=== PATIENT | female | born 1945 | race Caucasian/White ===

== ENCOUNTER → 2017-09-11 11:32 | Outpatient (CLI) | payer MEDICARE, OTHER, SELFPAY ==
--- NOTE | 2017-09-11 | DI.MG.S_ITS ---
BILATERAL DIGITAL SCREENING MAMMOGRAM 3D/2D WITH CAD: 09/11/2017 CLINICAL: Routine screening. Comparison is made to exams dated: 07/31/2016 mammogram, 07/23/2014 mammogram, and 07/22/2013 mammogram - [facility]. The tissue of both breasts is heterogeneously dense. This may lower the sensitivity of mammography. Current study was also evaluated with a Computer Aided Detection (CAD) system. No significant masses, calcifications, or other findings are seen in either breast. There has been no significant interval change. IMPRESSION: NEGATIVE There is no mammographic evidence of malignancy. A 1 year screening mammogram is recommended. This exam was interpreted at Station ID: [id number]. NOTE: For mammograms, a report in lay terms will be sent to the patient. Approximately 15% of breast malignancies will not be visualized mammographically. In the management of a palpable breast mass, a negative mammogram must not discourage biopsy of a clinically suspicious lesion. Electronically Signed By: Luke desai/cabrera:09/11/2017 17:18:45 letter sent: Normal Exam ACR BI-RADS Category 1: Negative 3341F
== END ==
PROVIDERS: PCP Internal Medicine; Visit Provider Internal Medicine
DX: Z12.31 Encounter for screening mammogram for malignant neoplasm of breast (principal)
CPT/HCPCS: 77063; 77067

== ENCOUNTER 2018-08-02 14:28 | Emergency (ER) | payer MEDICARE, OTHER, SELFPAY ==
[2018-08-02 14:30] VITALS: BP 198/84; PULSE 72; RESP 17; TEMP 36.7; O2SAT 98
--- NOTE | 2018-08-02 14:41 | DI.RAD.S_ITS ---
PROCEDURE: XR CHEST 1V INDICATIONS: chest pain TECHNIQUE: One view of the chest was acquired. COMPARISON: None. FINDINGS: Surgical changes and devices: None. Lungs and pleura: Lungs are clear. No pleural effusions or pneumothorax. Mediastinum: Mediastinal contours appear normal. Heart size is normal. Bones and chest wall: No suspicious bony lesions. Overlying soft tissues appear unremarkable. IMPRESSION: No acute process. Dictated by: Yosi Licona M.D. on 08/02/2018 at 14:10 Approved by: Yosi Licona M.D. on 08/02/2018 at 14:10
[2018-08-02 14:56] LABS: Add Manual Diff / Slide Review NO; Basophils Absolute Auto 0 /uL (0-100); Basophils Percent Auto 0.4 % (0-2); Eosinophils Absolute Auto 200 /uL (0-450); Eosinophils Percent Auto 2.5 % (2-4); Hematocrit 39.8 % (36-46); Hemoglobin 13.1 g/dL (12.0-16.0); Lymphocytes Absolute Auto 1700 /uL (1100-4500); Lymphocytes Percent Auto 23.1 % (25-40); Mean Corpuscular Hemoglobin 29.6 PG (26-34); Mean Corpuscular Volume 89.9 fL (80-100); Monocytes Absolute Auto 500 /uL (0-900); Monocytes Percent Auto 6.2 % (3-14); Neutrophils Absolute Auto 5100 /uL (1500-7000); Neutrophils Percent Auto 67.8 % (50-75); Platelet Count 183 X10^3/uL (150-400); Red Blood Cell Count 4.43 X10^6/uL (4.0-5.2); Red Cell Distribution Width 13.5 % (11.6-14.8); White Blood Cell Count 7.5 X10^3/uL (4.5-11.0)
[2018-08-02 14:58] LABS: Prothrombin Time 11.8 SECONDS (10.1-12.7)
[2018-08-02 15:01] LABS: PTT Partial Thromboplastin Tim 32 SECONDS (26.4-36.2)
[2018-08-02 15:02] LABS: Alanine Aminotransferase 27 IU/L (9-52); Albumin 4.6 g/dL (3.5-5.0); Albumin Globulin Ratio 1.6 (1.0-2.8); Alkaline Phosphatase 74 U/L (38-126); Aspartate Aminotransferase 30 IU/L (14-36); Bilirubin Total 0.5 mg/dL (0.2-1.3); Blood Urea Nitrogen 20 mg/dL (7-17); Calcium 9.6 mg/dL (8.4-10.2); Carbon Dioxide 28 mmol/L (22-32); Chloride 106 mmol/L (98-107); Creatine Kinase 168 U/L (30-135); Estimated Glomerular Filt Rate 54.3 mL/min (>60); Globulin 2.8 g/dL (1.7-4.1); Glucose 123 mg/dL (80-110); HEMOLYSIS 28 (0-50); Lipase 180 U/L (23-300); Potassium 4.1 mmol/L (3.4-5.1); Sodium 142 mmol/L (137-145); Total Protein 7.4 g/dL (6.3-8.2)
[2018-08-02 15:13] LABS: Troponin I < 0.012 ng/mL (0.01-0.034)
[2018-08-02 15:18] LABS: CKMB % Relative Index 1.3 % (1.5-5.0); Creatine Kinase MB 2.19 ng/mL (<2.37)
--- NOTE | 2018-08-02 15:56 | ED_ITS ---
HPI - Arrhythmia/Palpitations General Chief Complaint: Arrhythmia/Palpitations Stated Complaint: states trouble with blood pressure and pulse Time Seen by Provider: 08/02/18 15:56 Source: patient Mode of arrival: ambulatory Limitations: no limitations History of Present Illness HPI narrative: Patient is a 72-year-old female who presents with heart palpitations. She has having them off and on she actually had a workup with a Holter monitor in 2010. However she has been noticing it more frequently she has had it twice today she says it happens with exertion and resolves with rest. She feels her heart become quite fast and palpating. She does get short of breath during episodes. She has no real pain she does not pass out. MD complaint: rapid heart beat Related Data Home Medications Medication Instructions Recorded Confirmed aspirin 81 mg PO DAILY 08/02/18 08/02/18 lisinopril 10 mg PO BEDTIME 08/02/18 08/02/18 metoprolol tartrate 50 mg PO BID 08/02/18 08/02/18 metronidazole [Metrogel] 1 applic TOPICAL DAILY 08/02/18 08/02/18 rosuvastatin [Crestor] 10 mg PO DAILY 08/02/18 08/02/18 Allergies Allergy/AdvReac Type Severity Reaction Status Date / Time erythromycin base Allergy Intermediate Rash Verified 08/02/18 14:38 Review of Systems Review of Systems GENERAL: Denies chills, fatigue, malaise, fever, sweats, travel HEENT: Denies sinus pain, ear pain, sore throat, difficulty swallowing, neck p ain RESPIRATORY: Denies dyspnea, cough, wheezing, hemoptysis, sputum. CARDIOVASCULAR: See HPI GASTROINTESTINAL: Denies nausea, vomiting, abdominal pain, diarrhea, constipation, melena. : Denies dysuria, frequency, incontinence, hematuria, urinary retention, flank pain. MUSCULOSKELETAL: Denies weakness, joint pain, or bony pain SKIN: No rash, no erythema, no pruritus NEUROLOGIC: Denies weakness, dizziness, headache, numbness, change in speech, confusion PSYCHIATRIC: No concerning psychosocial issues. 12 point review of systems is negative except for those stated above and HPI [facility] Medical History Hypertension (Acute) Social History Smoking Status: Never smoker Social History Smoking Status: Never smoker Exam Initial Vital Signs Initial Vital Signs: Vital Signs Temperature 98.1 F 08/02/18 14:30 Pulse Rate 72 08/02/18 14:30 Respiratory Rate 17 08/02/18 14:30 Blood Pressure 198/84 H 08/02/18 14:30 Pulse Oximetry 98 08/02/18 14:30 GENERAL: Well-appearing, well-nourished and in no acute distress. HEENT: Head atraumatic,EOMI, pupils reactive, face symmetric, neck is supple no JVD CARDIOVASCULAR: Regular rate and rhythm without murmurs, rubs or gallops. RESPIRATORY: Breath sounds equal bilaterally, no wheezes rales or rhonchi. ABDOMEN: Soft, nontender. Normoactive bowel sounds all 4 quadrants. No guarding or rebound. EXTREMITIES: Normal range of motion, no clubbing or edema. Neurovascularly intact NEUROLOGICAL: Alert and oriented x4.Normal gait and speech. Cranial nerves II through XII grossly intact. SKIN: Warm, dry, no laceration, no petechiae, no rashes or lesions. Course Orders Ordered: ED Orders 08/02/18 14:40 Complete Blood Count AUTO DIFF Stat Comprehensive Metabolic Panel Stat Lipase Stat Partial Thromboplastin Time Stat Prothrombin Time INR Stat Troponin & CK Cardiac Panel Stat 08/02/18 14:41 XR chest 1V Stat EKG-12 Lead Stat Vital Signs - 8 hr 08/02/18 14:30 Temperature 98.1 F Pulse Rate 72 Respiratory Rate 17 Blood Pressure 198/84 H Pulse Oximetry 98 MDM - Arrhythmia/Palpitations Lab Data Attestation: I reviewed the patient's lab results. Result diagrams: 08/02/18 14:40 08/02/18 14:40 Lab Results 08/02/18 08/02/18 08/02/18 Range/Units 14:40 14:40 14:40 WBC 7.5 (4.5-11.0) X10^3/uL RBC 4.43 (4.0-5.2) X10^6/uL Hgb 13.1 (12.0-16.0) g/dL Hct 39.8 (36-46) % MCV 89.9 (80-100) fL MCH 29.6 (26-34) PG MCHC 33.0 (30-36) % RDW 13.5 (11.6-14.8) % Plt Count 183 (150-400) X10^3/uL Neut % (Auto) 67.8 (50-75) % Lymph % (Auto) 23.1 L (25-40) % Day % (Auto) 6.2 (3-14) % Eos % (Auto) 2.5 (2-4) % Baso % (Auto) 0.4 (0-2) % Neut # (Auto) 5100 (8073-4532) /uL Lymph # (Auto) 1700 (5593-0648) /uL Day # (Auto) 500 (0-900) /uL Eos # (Auto) 200 (0-450) /uL Baso # (Auto) 0 (0-100) /uL PT 11.8 (10.1-12.7) SECONDS INR 1.0 (0.9-1.3) APTT 32 (26.4-36.2) SECONDS Sodium 142 (137-145) mmol/L Potassium 4.1 (3.4-5.1) mmol/L Chloride 106 (98-107) mmol/L Carbon Dioxide 28 (22-32) mmol/L BUN 20 H (7-17) mg/dL Creatinine 1.00 (0.52-1.04) mg/dL Estimated GFR 54.3 L (>60) mL/min BUN/Creatinine Ratio 20.0 (6-22) Glucose 123 H (80-110) mg/dL Calcium 9.6 (8.4-10.2) mg/dL Total Bilirubin 0.5 (0.2-1.3) mg/dL AST 30 (14-36) IU/L ALT 27 (9-52) IU/L Alkaline Phosphatase 74 (38-126) U/L Total Creatine Kinase 168 H (30-135) U/L CK-MB (CK-2) 2.19 (<2.37) ng/mL CK-MB (CK-2) Rel Index 1.3 L (1.5-5.0) % Troponin I < 0.012 (0.01-0.034) ng/mL Total Protein 7.4 (6.3-8.2) g/dL Albumin 4.6 (3.5-5.0) g/dL Globulin 2.8 (1.7-4.1) g/dL Albumin/Globulin Ratio 1.6 (1.0-2.8) Lipase 180 (23-300) U/L Imaging Data Chest x-ray: Radiologist's impression: PROCEDURE: XR CHEST 1V INDICATIONS: chest pain TECHNIQUE: One view of the chest was acquired. COMPARISON: None. FINDINGS: Surgical changes and devices: None. Lungs and pleura: Lungs are clear. No pleural effusions or pneumothorax. Mediastinum: Mediastinal contours appear normal. Heart size is normal. Bones and chest wall: No suspicious bony lesions. Overlying soft tissues appear unremarkable. IMPRESSION: No acute process. Dictated by: Yosi Licona M.D. on 08/02/2018 at 14:10 ECG Data Attestation: I personally reviewed and interpreted this ECG as follows: Prior ECG tracings: available for review Interpretation: Normal sinus rhythm rate [address] changes no T-wave inversion MDM Narrative Medical decision making narrative: I had the patient stand up and jump up and down at bedside. While she was on the monitor her heart rate remained stable. I strongly recommend that she have a Holter monitor read done. Recommend that she follow up with her PCP. Her blood pressure is noted to be elevated she has not taken her 4:00 p.m. medications. She did take a dose in the emergency department. I recommended that she have her blood pressure candelaria cked as well. Discharge Plan Departure Patient Disposition: Home Clinical Impression: Palpitations Discharge Date/Time: 08/02/18 16:26 Interventions: ED Discharge Assessment Last Done: 08/02/18 16:17 Instructions: DI for Palpitations Activity Restrictions/Additional Instructions: *You have been diagnosed with heart palpitations *What to do: You need a heart monitor your PCP can help set this up. I also recommend you get a home pulse oximeter which can measure your heart rate when you feel like it is going fast. *Continue to take medications as directed Continue your medications as prescribed -be sure you take your blood pressure medication here blood pressure is noted to be elevated in the emergency department *Follow up with your primary care provider in 2-3 days *Return to ER if you should have any new or worsening heart palpitations shortness of breath passing or any new, worsening or concerning symptoms Prescriptions: No Action rosuvastatin [Crestor] 10 mg tablet 10 mg PO DAILY RF: 0 lisinopril 10 mg tablet 10 mg PO BEDTIME RF: 0 metoprolol tartrate 50 mg tablet 50 mg PO BID RF: 0 metronidazole [Metrogel] 1 % gel 1 applic topical DAILY RF: 0 aspirin 81 mg Tablet,Chewable 81 mg PO DAILY RF: 0 Referrals: Hong Rose MD [Primary Care Provider] -
[2018-08-02 16:17] VITALS: BP 186/76; PULSE 64; RESP 20; O2SAT 99
== END 2018-08-02 16:26 | disposition home or self-care (01) ==
PROVIDERS: Emergency Provider Emergency Medicine; PCP Internal Medicine
DX: R00.2 Palpitations (principal)
CPT/HCPCS: 36591; 71045; 80053; 82550; 82553; 83690; 84484; 85025; 85610; 85730; 93005; 99283; 99285

== ENCOUNTER → 2018-10-02 11:11 | Outpatient (CLI) | payer MEDICARE, OTHER, SELFPAY ==
--- NOTE | 2018-10-02 | DI.MG.S_ITS ---
BILATERAL DIGITAL SCREENING MAMMOGRAM 3D/2D WITH CAD: 10/02/2018 CLINICAL: Routine screening. Comparison is made to exams dated: 09/11/2017 mammogram, 07/31/2016 mammogram, 07/23/2014 mammogram, and 06/25/2012 mammogram - [facility]. The tissue of both breasts is heterogeneously dense. This may lower the sensitivity of mammography. Current study was also evaluated with a Computer Aided Detection (CAD) system. No significant masses, calcifications, or other findings are seen in either breast. There has been no significant interval change. IMPRESSION: NEGATIVE There is no mammographic evidence of malignancy. A 1 year screening mammogram is recommended. This exam was interpreted at Station ID: [id number]. NOTE: For mammograms, a report in lay terms will be sent to the patient. Approximately 15% of breast malignancies will not be visualized mammographically. In the management of a palpable breast mass, a negative mammogram must not discourage biopsy of a clinically suspicious lesion. Electronically Signed By: Trevor guzman/cabrera:10/02/2018 12:10:07 letter sent: Normal Exam ACR BI-RADS Category 1: Negative 3341F
== END ==
PROVIDERS: PCP Internal Medicine; Visit Provider Internal Medicine
DX: Z12.31 Encounter for screening mammogram for malignant neoplasm of breast (principal)
CPT/HCPCS: 77063; 77067

== ENCOUNTER → 2019-10-04 11:27 | Outpatient (CLI) | payer MEDICARE, OTHER, SELFPAY ==
--- NOTE | 2019-10-04 11:30 | DI.MG.S_ITS ---
BILATERAL DIGITAL SCREENING MAMMOGRAM 3D/2D WITH CAD: 10/04/2019 CLINICAL: Routine screening. Comparison is made to exams dated: 10/02/2018 mammogram, 09/11/2017 mammogram, and 07/31/2016 mammogram - [facility]. The tissue of both breasts is heterogeneously dense. This may lower the sensitivity of mammography. Current study was also evaluated with a Computer Aided Detection (CAD) system. No significant masses, calcifications, or other findings are seen in either breast. There has been no significant interval change. IMPRESSION: NEGATIVE There is no mammographic evidence of malignancy. A 1 year screening mammogram is recommended. This exam was interpreted at Station ID: [id number]. NOTE: For mammograms, a report in lay terms will be sent to the patient. Approximately 15% of breast malignancies will not be visualized mammographically. In the management of a palpable breast mass, a negative mammogram must not discourage biopsy of a clinically suspicious lesion. Electronically Signed By: Sherwin tidwell/cabrera:10/06/2019 07:45:45 letter sent: Normal Exam ACR BI-RADS Category 1: Negative 3341F
== END ==
PROVIDERS: PCP Internal Medicine; Referring Provider Internal Medicine; Visit Provider Internal Medicine
DX: Z12.31 Encounter for screening mammogram for malignant neoplasm of breast (principal)
CPT/HCPCS: 77063; 77067

== ENCOUNTER → 2020-03-29 13:00 | Outpatient (CLI) | payer MEDICARE, OTHER, SELFPAY ==
[2020-03-29 13:34] LABS: Hematocrit 38.7 % (36-46); Hemoglobin 12.9 g/dL (12.0-16.0); Mean Corpuscular HGB Conc 33.4 % (30-36); Mean Corpuscular Hemoglobin 29.6 PG (26-34); Mean Corpuscular Volume 88.7 fL (80-100); Platelet Count 185 X10^3/uL (150-400); Red Blood Cell Count 4.36 X10^6/uL (4.0-5.2); Red Cell Distribution Width 13.5 % (11.6-14.8)
[2020-03-29 13:52] LABS: Alanine Aminotransferase 20 IU/L (<35); Albumin 4.6 g/dL (3.5-5.0); Albumin Globulin Ratio 1.4 (1.0-2.8); Alkaline Phosphatase 84 U/L (38-126); Aspartate Aminotransferase 26 IU/L (14-36); BUN Creatinine Ratio 25.3 (6-22); Bilirubin Total 0.3 mg/dL (0.2-1.3); Blood Urea Nitrogen 23 mg/dL (7-17); Calcium 9.8 mg/dL (8.4-10.2); Carbon Dioxide 30 mmol/L (22-32); Chloride 103 mmol/L (98-107); Cholesterol 160 mg/dL (140-199); Estimated Glomerular Filt Rate > 60.0 mL/min (>60); Globulin 3.2 g/dL (1.7-4.1); Glucose 110 mg/dL (80-110); HDL Cholesterol 68 mg/dL (40-60); HEMOLYSIS < 15 (0-50); LDL Cholesterol Calculated 71 mg/dL (<100); Sodium 138 mmol/L (137-145); Total Protein 7.8 g/dL (6.3-8.2); Triglycerides 104 mg/dL (35-150)
[2020-03-29 14:51] LABS: TSH w/ Reflex to FT4 1.63 uIU/mL (0.47-4.68)
== END ==
PROVIDERS: PCP Registered Nurse Diabetes Educator; Referring Provider Registered Nurse Diabetes Educator; Visit Provider Registered Nurse Diabetes Educator
DX: E78.5 Hyperlipidemia, unspecified (principal); I10 Essential (primary) hypertension
CPT/HCPCS: 36415; 80053; 80061; 84443; 85027

== ENCOUNTER → 2020-04-03 09:54 | Outpatient (CLI) | payer MEDICARE, OTHER, SELFPAY ==
[2020-04-03 11:24] LABS: COVID19 -Nasal RAPID Negative (Negative)
== END ==
PROVIDERS: PCP Registered Nurse Diabetes Educator; Visit Provider Physician Assistant
DX: Z20.822 Contact with and (suspected) exposure to COVID-19 (principal)
CPT/HCPCS: 87635; C9803

== ENCOUNTER → 2020-04-05 13:24 | Outpatient (CLI) | payer MEDICARE, OTHER, SELFPAY | PROVIDERS: PCP Registered Nurse Diabetes Educator; Referring Provider Registered Nurse Diabetes Educator; Visit Provider Registered Nurse Diabetes Educator | DX: R07.89 Other chest pain (principal) ==

== ENCOUNTER → 2020-04-21 09:57 | Outpatient (CLI) | payer MEDICARE, OTHER, SELFPAY ==
[2020-04-21 11:37] LABS: COVID19 -Nasal RAPID Negative (Negative)
== END ==
PROVIDERS: PCP Registered Nurse Diabetes Educator; Visit Provider Physician Assistant
DX: Z20.822 Contact with and (suspected) exposure to COVID-19 (principal); Z01.812 Encounter for preprocedural laboratory examination
CPT/HCPCS: 87635; C9803

== ENCOUNTER → 2020-04-22 13:05 | Outpatient (CLI) | payer MEDICARE, OTHER, SELFPAY ==
--- NOTE | 2020-04-22 14:14 | PM.TREADMILL ---
Cardiac Stress Test Report Referral & Results Date Patient Seen: 04/22/20 Requesting provider: Fede Caraballo Indication: Chest discomfort Rest ECG: Unremarkable except for frequent PACs Procedure Note: Today following both written and verbal informed consent the patient was exercised according to a standard Matias protocol patient went for a total of 3 minutes 35 seconds achieving a maximum heart rate of 146 maximum systolic blood pressure of 218. This is approximately 4.6 METS. Exercise was terminated at this point because of 2+ dyspnea and patient had met targets Patient was also given Cardiolite through a previously started Hep-Lock IV by the diagnostic imaging staff approximately 1 minute prior to the cessation of exercise. Patient was somewhat hypertensive to start but ultimately did peak at a slightly hypertensive level. Blood pressure did not rise all that quickly. Heart rate leonie very quickly with initiation of exercise despite her metoprolol which she did take prior to this test No ST-T segment changes Function aerobic impairment rates 10% sedentary scale Impression: Basically average exercise capacity, no evidence of ischemia Patient not fully beta-blocked based on her quick heart rate response and overall blood pressure response to exercise, FYI. Please note: Actual ECG tracings can be found in the PACS system.
--- NOTE | 2020-04-23 17:58 | DI.NM.S_ITS ---
DATE OF SERVICE: 04/23/2020 PROCEDURE PERFORMED: Exercise treadmill stress and rest myocardial perfusion imaging with gating to assess ejection fraction and regional wall motion. ORDERING PROVIDER: AUBRIE Paris. INDICATIONS: The patient is a 74-year-old female with a history of SVT and an aborted standard exercise treadmill because of severe hypertension. EXERCISE TREADMILL TESTING: The patient was able to exercise for 3 minutes and 35 seconds on a standard Matias protocol suggesting moderately impaired exercise capacity with an FARZANA of +25%. She had an accelerated heart rate and blood pressure response to exercise with a resting heart rate of 68 BPM that increased to a maximum of 146 BPM (101% of her predicted maximum). Her resting blood pressure was 178/100 and increased to a maximum of 218/80. She had no chest discomfort. Her resting ECG shows mild nonspecific inferolateral ST and T-wave abnormalities that remain unchanged with exercise. She had occasional PACs but no ventricular ectopy. At 2 minutes and 34 seconds of exercise at a heart rate of 135 BPM, 25.9 millicuries of technetium-99m Myoview was injected and the patient was imaged 15 minutes later using a gated SPECT acquisition protocol. The following day she returned and was injected with 25.5 millicuries of technetium-99m Myoview and was imaged 40 minutes later, again using a gated SPECT acquisition protocol. FINDINGS: 1. Raw data: There is fair myocardial tracer uptake with moderate breast shadows noted. Lung/heart ratio was normal at 0.33 with a normal TID ratio of 0.94. 2. Quantitated gated SPECT: Post-stress ejection fraction is estimated at 81% without any focal wall motion abnormality and specifically the anterior wall has normal contractility. The resting ejection fraction is 74% with a resting end- diastolic volume of 72 mL. 3. Myocardial perfusion imaging: The post-stress supine images show a fairly normal perfusion pattern although with a slight defect in the mid anterior wall in a pattern consistent with breast attenuation artifact. There is also a slight lateral wall hot spot that can often be seen in hypertensive heart disease. There are no profound perfusion defects. The prone images show a very similar perfusion pattern with improvement although with a slight residual defect in the mid anterior wall. The resting images show a similar perfusion pattern to that of the post-stress supine images without any clear areas of improvement. IMPRESSION: 1. Probable normal myocardial perfusion study. 2. Small, subtle, fixed anterior defect that improves, but does not resolve on prone imaging, most consistent with breast attenuation artifact. While previous nontransmural infarction cannot be entirely excluded, it is unlikely given the absence of any wall motion abnormality. There is no evidence for any myocardial ischemia. A lateral wall hot spot is seen which can be seen in patients with hypertensive heart disease. 3. Normal left ventricular systolic function without any focal wall motion abnormality. 4. Moderately impaired exercise capacity without angina, but a significant hypertensive blood pressure response to exercise. There is no significant ECG evidence for myocardial ischemia. Carmen Campbell - /tuan/sb doc#: [id number]/job#: [id number] dd: 04/23/2020 17:11:00 dt: 04/23/2020 17:48:00 DICTATING /COPIES TO: Boston Coppola MD COPIES MNE: STEVEN;
== END ==
PROVIDERS: PCP Registered Nurse Diabetes Educator; Referring Provider Registered Nurse Diabetes Educator; Visit Provider Registered Nurse Diabetes Educator
DX: R07.89 Other chest pain (principal); I47.1 Supraventricular tachycardia
CPT/HCPCS: 78452; 93016; 93017; 93018; A9502

== ENCOUNTER → 2020-10-23 08:43 | Outpatient (CLI) | payer MEDICARE, OTHER, SELFPAY ==
--- NOTE | 2020-10-23 08:44 | DI.MG.S_ITS ---
BILATERAL DIGITAL SCREENING MAMMOGRAM 3D/2D WITH CAD: 10/23/2020 CLINICAL: Routine screening. Comparison is made to exams dated: 10/04/2019 mammogram, 10/02/2018 mammogram, and 09/11/2017 mammogram - [facility]. The tissue of both breasts is heterogeneously dense. This may lower the sensitivity of mammography. Current study was also evaluated with a Computer Aided Detection (CAD) system. No significant masses, calcifications, or other findings are seen in either breast. There has been no significant interval change. IMPRESSION: NEGATIVE There is no mammographic evidence of malignancy. A 1 year screening mammogram is recommended. This exam was interpreted at Station ID: [id number]. NOTE: For mammograms, a report in lay terms will be sent to the patient. Approximately 15% of breast malignancies will not be visualized mammographically. In the management of a palpable breast mass, a negative mammogram must not discourage biopsy of a clinically suspicious lesion. Electronically Signed By: Sherwin tidwell/cabrera:10/25/2020 07:31:42 letter sent: Normal Exam ACR BI-RADS Category 1: Negative 3341F
== END ==
PROVIDERS: PCP Registered Nurse Diabetes Educator; Referring Provider Registered Nurse Diabetes Educator; Visit Provider Registered Nurse Diabetes Educator
DX: Z12.31 Encounter for screening mammogram for malignant neoplasm of breast (principal)
CPT/HCPCS: 77063; 77067

== ENCOUNTER → 2020-11-15 09:31 | Outpatient (CLI) | payer MEDICARE, OTHER, SELFPAY ==
[2020-11-15 12:17] LABS: BUN Creatinine Ratio 24.7 (6-22); Blood Urea Nitrogen 20 mg/dL (7-17); Calcium 9.6 mg/dL (8.4-10.2); Carbon Dioxide 28 mmol/L (22-32); Chloride 103 mmol/L (98-107); Estimated Glomerular Filt Rate > 60.0 mL/min (>60); Glucose 97 mg/dL (80-110); HEMOLYSIS < 15 (0-50); Potassium 4.1 mmol/L (3.4-5.1); Sodium 138 mmol/L (137-145)
== END ==
PROVIDERS: PCP Registered Nurse Diabetes Educator; Referring Provider Internal Medicine Cardiovascular Disease; Visit Provider Internal Medicine Cardiovascular Disease
DX: I10 Essential (primary) hypertension (principal)
CPT/HCPCS: 36415; 80048

== ENCOUNTER → 2021-01-14 09:39 | Outpatient (CLI) | payer MEDICARE, OTHER, SELFPAY ==
[2021-01-14 10:26] LABS: Hematocrit 38.6 % (36-46); Hemoglobin 13.1 g/dL (12.0-16.0); Mean Corpuscular Hemoglobin 30.2 PG (26-34); Mean Corpuscular Volume 88.7 fL (80-100); Platelet Count 185 X10^3/uL (150-400); Red Blood Cell Count 4.35 X10^6/uL (4.0-5.2); Red Cell Distribution Width 13.3 % (11.6-14.8); White Blood Cell Count 5.5 X10^3/uL (4.5-11.0)
[2021-01-14 10:35] LABS: Hemoglobin A1C% w Est Avg Glu 5.3 % (4.0-6.0)
[2021-01-14 10:42] LABS: Alanine Aminotransferase 17 IU/L (<35); Albumin 4.2 g/dL (3.5-5.0); Albumin Globulin Ratio 1.6 (1.0-2.8); Alkaline Phosphatase 99 U/L (38-126); Aspartate Aminotransferase 22 IU/L (14-36); Bilirubin Total 0.4 mg/dL (0.2-1.3); Blood Urea Nitrogen 16 mg/dL (7-17); Calcium 9.6 mg/dL (8.4-10.2); Carbon Dioxide 31 mmol/L (22-32); Chloride 103 mmol/L (98-107); Cholesterol 143 mg/dL (140-199); Estimated Glomerular Filt Rate 57.9 mL/min (>60); Globulin 2.7 g/dL (1.7-4.1); Glucose 120 mg/dL (80-110); HDL Cholesterol 72 mg/dL (40-60); HEMOLYSIS < 15 (0-50); LDL Cholesterol Calculated 57 mg/dL (<100); Potassium 4.2 mmol/L (3.4-5.1); Sodium 139 mmol/L (137-145); Total Protein 6.9 g/dL (6.3-8.2); Triglycerides 68 mg/dL (35-150)
[2021-01-14 11:08] LABS: TSH w/ Reflex to FT4 1.15 uIU/mL (0.47-4.68)
== END ==
PROVIDERS: PCP Registered Nurse Diabetes Educator; Referring Provider Internal Medicine Cardiovascular Disease; Visit Provider Internal Medicine Cardiovascular Disease
DX: E78.5 Hyperlipidemia, unspecified (principal); R73.01 Impaired fasting glucose; I10 Essential (primary) hypertension
CPT/HCPCS: 36415; 80053; 80061; 83036; 84443; 85027

== ENCOUNTER → 2021-03-29 08:36 | Outpatient (CLI) | payer MEDICARE, OTHER, SELFPAY ==
[2021-03-29 10:13] LABS: BUN Creatinine Ratio 16.5 (6-22); Blood Urea Nitrogen 15 mg/dL (7-17); Calcium 9.8 mg/dL (8.4-10.2); Carbon Dioxide 28 mmol/L (22-32); Chloride 104 mmol/L (98-107); Estimated Glomerular Filt Rate > 60.0 mL/min (>60); Glucose 101 mg/dL (80-110); HEMOLYSIS < 15 (0-50); Potassium 4.2 mmol/L (3.4-5.1); Sodium 140 mmol/L (137-145)
== END ==
PROVIDERS: PCP Registered Nurse Diabetes Educator; Referring Provider Registered Nurse Diabetes Educator; Visit Provider Registered Nurse Diabetes Educator
DX: R94.4 Abnormal results of kidney function studies (principal)
CPT/HCPCS: 36415; 80048

== ENCOUNTER → 2021-04-05 10:02 | Outpatient (CLI) | payer MEDICARE, OTHER, SELFPAY ==
[2021-04-05 11:40] LABS: HEMOLYSIS < 15 (0-50); Iron 72 ug/dL (37-170)
[2021-04-05 11:50] LABS: Percent Iron Saturation 25 % (15-50); Total Iron Binding Capacity 285 ug/dL (265-497); Transferrin 235 mg/dL (206-381)
[2021-04-05 12:15] LABS: Ferritin 81 ng/mL (11-264)
== END ==
PROVIDERS: PCP Registered Nurse Diabetes Educator; Referring Provider Registered Nurse Diabetes Educator; Visit Provider Registered Nurse Diabetes Educator
DX: G25.81 Restless legs syndrome (principal)
CPT/HCPCS: 36415; 82728; 83540; 83550

== ENCOUNTER → 2021-10-29 08:25 | Outpatient (CLI) | payer MEDICARE, OTHER, SELFPAY ==
--- NOTE | 2021-10-29 08:27 | DI.MG.S_ITS ---
BILATERAL DIGITAL SCREENING MAMMOGRAM 3D/2D WITH CAD: 10/29/2021 CLINICAL: Routine screening. Family history of breast cancer. Comparison is made to exams dated: 10/23/2020 mammogram, 10/04/2019 mammogram, 09/11/2017 mammogram, and 10/02/2018 mammogram - [facility]. Both breasts are heterogeneously dense, which may obscure small masses (category c / 51-75% glandular tissue). Current study was also evaluated with a Computer Aided Detection (CAD) system. No significant masses, calcifications, or other findings are seen in either breast. There has been no significant interval change. IMPRESSION: NEGATIVE There is no mammographic evidence of malignancy. A 1 year screening mammogram is recommended. Based on the Tyrer Cuzick model (a risk assessment model) the patient's lifetime risk is 3.7% and her 10 year risk is 0.0%. According to the ACR, ACS, and NCCN guidelines, an annual breast MRI exam along with mammogram is recommended if the patient's lifetime risk is 20% or greater. This exam was interpreted at Station ID: [id number]. NOTE: For mammograms, a report in lay terms will be sent to the patient. Approximately 15% of breast malignancies will not be visualized mammographically. In the management of a palpable breast mass, a negative mammogram must not discourage biopsy of a clinically suspicious lesion. Electronically Signed By: Sherwin tidwell/cabrera:10/31/2021 07:58:49 letter sent: Normal Exam ACR BI-RADS Category 1: Negative 3341F
== END ==
PROVIDERS: PCP Registered Nurse Diabetes Educator; Referring Provider Registered Nurse Diabetes Educator; Visit Provider Registered Nurse Diabetes Educator
DX: Z12.31 Encounter for screening mammogram for malignant neoplasm of breast (principal); Z80.3 Family history of malignant neoplasm of breast
CPT/HCPCS: 77063; 77067

== ENCOUNTER → 2022-03-21 09:06 | Outpatient (CLI) | payer MEDICARE, OTHER, SELFPAY ==
[2022-03-21 10:56] LABS: Hematocrit 40.3 % (36-46); Hemoglobin 13.2 g/dL (12.0-16.0); Mean Corpuscular HGB Conc 32.8 % (30-36); Mean Corpuscular Hemoglobin 29.2 PG (26-34); Platelet Count 182 X10^3/uL (150-400); Red Blood Cell Count 4.53 X10^6/uL (4.0-5.2); Red Cell Distribution Width 13.6 % (11.6-14.8); White Blood Cell Count 5.8 X10^3/uL (4.5-11.0)
[2022-03-21 11:08] LABS: Alanine Aminotransferase 19 IU/L (<35); Albumin 4.1 g/dL (3.5-5.0); Albumin Globulin Ratio 1.5 (1.0-2.8); Alkaline Phosphatase 106 U/L (38-126); Aspartate Aminotransferase 21 IU/L (14-36); BUN Creatinine Ratio 19.1 (6-22); Bilirubin Total 0.5 mg/dL (0.2-1.3); Blood Urea Nitrogen 17 mg/dL (7-17); Calcium 9.7 mg/dL (8.4-10.2); Carbon Dioxide 28 mmol/L (22-32); Chloride 103 mmol/L (98-107); Cholesterol 163 mg/dL (140-199); Estimated Glomerular Filt Rate > 60 mL/min (>60); Globulin 2.7 g/dL (1.7-4.1); Glucose 99 mg/dL (80-110); HDL Cholesterol 77 mg/dL (40-60); HEMOLYSIS < 15 (0-50); LDL Cholesterol Calculated 70 mg/dL (<100); Potassium 4.1 mmol/L (3.4-5.1); Sodium 138 mmol/L (137-145); Total Protein 6.8 g/dL (6.3-8.2); Triglycerides 78 mg/dL (35-150)
== END ==
PROVIDERS: PCP Registered Nurse Diabetes Educator; Referring Provider Registered Nurse Diabetes Educator; Visit Provider Registered Nurse Diabetes Educator
DX: E78.5 Hyperlipidemia, unspecified (principal); I10 Essential (primary) hypertension; R73.01 Impaired fasting glucose
CPT/HCPCS: 36415; 80053; 80061; 85027

== ENCOUNTER → 2022-08-16 14:40 | Outpatient (CLI) | payer MEDICARE, OTHER, SELFPAY ==
[2022-08-16 17:41] LABS: BUN Creatinine Ratio 14.3 (6-22); Blood Urea Nitrogen 17 mg/dL (7-17); Calcium 8.8 mg/dL (8.4-10.2); Carbon Dioxide 29 mmol/L (22-32); Chloride 101 mmol/L (98-107); Estimated Glomerular Filt Rate 47 mL/min (>60); Glucose 114 mg/dL (80-110); HEMOLYSIS < 15 (0-50); Potassium 3.9 mmol/L (3.4-5.1); Sodium 137 mmol/L (137-145)
== END ==
PROVIDERS: PCP Registered Nurse Diabetes Educator; Referring Provider Registered Nurse Diabetes Educator; Visit Provider Registered Nurse Diabetes Educator
DX: I10 Essential (primary) hypertension (principal); Z51.81 Encounter for therapeutic drug level monitoring
CPT/HCPCS: 36415; 80048

== ENCOUNTER → 2022-09-08 12:19 | Outpatient (CLI) | payer MEDICARE, OTHER, SELFPAY ==
[2022-09-08 13:17] LABS: BUN Creatinine Ratio 19.4 (6-22); Blood Urea Nitrogen 18 mg/dL (7-17); Calcium 9.2 mg/dL (8.4-10.2); Carbon Dioxide 28 mmol/L (22-32); Chloride 103 mmol/L (98-107); Estimated Glomerular Filt Rate > 60 mL/min (>60); Glucose 132 mg/dL (80-110); HEMOLYSIS < 15 (0-50); Sodium 137 mmol/L (137-145)
== END ==
PROVIDERS: PCP Registered Nurse Diabetes Educator; Referring Provider Registered Nurse Diabetes Educator; Visit Provider Registered Nurse Diabetes Educator
DX: I10 Essential (primary) hypertension (principal); R94.4 Abnormal results of kidney function studies
CPT/HCPCS: 36415; 80048

== ENCOUNTER → 2023-03-21 06:53 | Outpatient (CLI) | payer MEDICARE, OTHER, SELFPAY ==
[2023-03-21 08:23] LABS: Hematocrit 40.2 % (36-46); Hemoglobin 13.6 g/dL (12.0-16.0); Mean Corpuscular HGB Conc 33.9 % (30-36); Mean Corpuscular Hemoglobin 30.3 PG (26-34); Mean Corpuscular Volume 89.5 fL (80-100); Platelet Count 201 X10^3/uL (150-400); Red Cell Distribution Width 13.1 % (11.6-14.8); White Blood Cell Count 5.6 X10^3/uL (4.5-11.0)
[2023-03-21 08:50] LABS: Alanine Aminotransferase 16 IU/L (<35); Albumin 4.3 g/dL (3.5-5.0); Albumin Globulin Ratio 1.6 (1.0-2.8); Alkaline Phosphatase 94 U/L (38-126); Aspartate Aminotransferase 20 IU/L (14-36); BUN Creatinine Ratio 17.4 (6-22); Bilirubin Total 0.5 mg/dL (0.2-1.3); Blood Urea Nitrogen 16 mg/dL (7-17); Carbon Dioxide 26 mmol/L (22-32); Chloride 104 mmol/L (98-107); Cholesterol 147 mg/dL (140-199); Estimated Glomerular Filt Rate > 60 mL/min (>60); Globulin 2.7 g/dL (1.7-4.1); Glucose 110 mg/dL (80-110); HDL Cholesterol 76 mg/dL (40-60); HEMOLYSIS < 15 (0-50); LDL Cholesterol Calculated 58 mg/dL (<100); Potassium 3.9 mmol/L (3.4-5.1); Sodium 138 mmol/L (137-145); Triglycerides 66 mg/dL (35-150)
== END ==
PROVIDERS: PCP Registered Nurse Diabetes Educator; Referring Provider Registered Nurse Diabetes Educator; Visit Provider Registered Nurse Diabetes Educator
DX: I10 Essential (primary) hypertension (principal); E78.5 Hyperlipidemia, unspecified; R73.01 Impaired fasting glucose
CPT/HCPCS: 36415; 80053; 80061; 85027

== ENCOUNTER → 2024-03-06 09:11 | Outpatient (CLI) | payer MEDICARE, OTHER, SELFPAY ==
[2024-03-06 10:14] LABS: Hematocrit 40.4 % (36-46); Hemoglobin 13.4 g/dL (12.0-16.0); Mean Corpuscular HGB Conc 33.2 % (30-36); Mean Corpuscular Hemoglobin 29.6 PG (26-34); Mean Corpuscular Volume 89.2 fL (80-100); Platelet Count 197 X10^3/uL (150-400); Red Blood Cell Count 4.53 X10^6/uL (4.0-5.2); Red Cell Distribution Width 14.1 % (11.6-14.8); White Blood Cell Count 5.9 X10^3/uL (4.5-11.0)
[2024-03-06 10:28] LABS: Hemoglobin A1C% w Est Avg Glu 5.4 % (4.0-6.0)
[2024-03-06 10:48] LABS: Alanine Aminotransferase 18 IU/L (<35); Albumin 4.4 g/dL (3.5-5.0); Albumin Globulin Ratio 1.8 (1.0-2.8); Alkaline Phosphatase 100 U/L (38-126); Aspartate Aminotransferase 22 IU/L (14-36); BUN Creatinine Ratio 19.2 (6-22); Bilirubin Total 0.4 mg/dL (0.2-1.3); Blood Urea Nitrogen 19 mg/dL (7-17); Calcium 9.7 mg/dL (8.4-10.2); Carbon Dioxide 25 mmol/L (22-32); Chloride 105 mmol/L (98-107); Cholesterol 137 mg/dL (140-199); Estimated Glomerular Filt Rate 58 mL/min (>60); Globulin 2.4 g/dL (1.7-4.1); Glucose 109 mg/dL (80-110); HDL Cholesterol 66 mg/dL (40-60); HEMOLYSIS < 15 (0-50); LDL Cholesterol Calculated 59 mg/dL (<100); Potassium 4.2 mmol/L (3.4-5.1); Sodium 137 mmol/L (137-145); Total Protein 6.8 g/dL (6.3-8.2); Triglycerides 61 mg/dL (35-150)
== END ==
PROVIDERS: PCP Registered Nurse Diabetes Educator; Referring Provider Registered Nurse Diabetes Educator; Visit Provider Registered Nurse Diabetes Educator
DX: R73.01 Impaired fasting glucose (principal); I10 Essential (primary) hypertension; E78.5 Hyperlipidemia, unspecified
CPT/HCPCS: 36415; 80053; 80061; 83036; 85027

== ENCOUNTER → 2024-12-04 09:15 | Outpatient (CLI) | payer MEDICARE, OTHER, SELFPAY ==
--- NOTE | 2024-12-04 09:17 | DI.RAD.S_ITS ---
PROCEDURE: XR LUMBAR SPINE MIN 4V INDICATIONS: eval LBP/buttock pain TECHNIQUE: 5 views of the lumbar spine acquired, including flexion and extension views. COMPARISON: None. FINDINGS: Lumbar spine curvature and alignment: Moderate dextroscoliosis lower thoracic and lumbar spine mine appreciated Bones: Mild chronic wedge compression fractures T8 through L2. Disc spaces: Moderate degenerative disc disease T10-11 through L4-5 and mild L5-S1 degenerative disc disease. Moderate L3-4 through L5-S1 degenerative facet disease . Moderate L3-4 through L5-S1 degenerative facet disease Soft tissues: No soft tissue swelling, calcification or mass. IMPRESSION: Degeneration. Minimal chronic wedge compression fractures T8 through L2. Suspect chronic osteoporosis Dictated by: Neptali Venegas M.D. on 12/05/2024 at 11:34 Approved by: Neptali Venegas M.D. on 12/05/2024 at 11:36
== END ==
PROVIDERS: PCP Registered Nurse Diabetes Educator; Referring Provider Registered Nurse Diabetes Educator; Visit Provider Registered Nurse Diabetes Educator
DX: M51.34 Other intervertebral disc degeneration, thoracic region (principal); M51.360 Other intervertebral disc degeneration, lumbar region with discogenic back pain only; M51.370 Other intervertebral disc degeneration, lumbosacral region with discogenic back pain only; M47.816 Spondylosis without myelopathy or radiculopathy, lumbar region; M47.817 Spondylosis without myelopathy or radiculopathy, lumbosacral region; M79.18 Myalgia, other site
CPT/HCPCS: 72110

== ENCOUNTER → 2024-12-18 11:44 | Outpatient (CLI) | payer MEDICARE, OTHER, SELFPAY ==
--- NOTE | 2024-12-18 11:45 | DI.RAD.S_ITS ---
PROCEDURE: XR DEXA AXIAL SKELETON
== END ==
LOC: RAD 11:44
PROVIDERS: PCP Registered Nurse Diabetes Educator; Referring Provider Registered Nurse Diabetes Educator; Visit Provider Registered Nurse Diabetes Educator
DX: S22.000A Wedge compression fracture of unspecified thoracic vertebra, initial encounter for closed fracture (principal); M81.0 Age-related osteoporosis without current pathological fracture
CPT/HCPCS: 77080

== ENCOUNTER → 2024-12-30 09:54 | Outpatient (CLI) | payer MEDICARE, OTHER, SELFPAY ==
[2024-12-30 10:42] LABS: Hematocrit 41.3 % (36-46); Hemoglobin 13.7 g/dL (12.0-16.0); Mean Corpuscular HGB Conc 33.1 % (30-36); Mean Corpuscular Hemoglobin 29.6 PG (26-34); Mean Corpuscular Volume 89.3 fL (80-100); Platelet Count 217 X10^3/uL (150-400)
[2024-12-30 10:56] LABS: Hemoglobin A1C% w Est Avg Glu 5.6 % (4.0-6.0)
[2024-12-30 11:02] LABS: Alanine Aminotransferase 21 IU/L (<35); Albumin 4.5 g/dL (3.5-5.0); Albumin Globulin Ratio 1.7 (1.0-2.8); Alkaline Phosphatase 103 U/L (38-126); Blood Urea Nitrogen 14 mg/dL (7-17); Calcium 9.9 mg/dL (8.4-10.2); Carbon Dioxide 27 mmol/L (22-32); Chloride 103 mmol/L (98-107); Cholesterol 156 mg/dL (140-199); Estimated Glomerular Filt Rate > 60 mL/min (>60); Globulin 2.7 g/dL (1.7-4.1); Glucose 111 mg/dL (70-99); HDL Cholesterol 86 mg/dL (40-60); HEMOLYSIS < 15 (0-50); Potassium 4.4 mmol/L (3.4-5.1); Sodium 139 mmol/L (137-145); Total Protein 7.2 g/dL (6.3-8.2); Triglycerides 64 mg/dL (35-150)
[2024-12-30 11:22] LABS: Vitamin D 25 Hydroxy (D3) 64.1 ng/mL (30.0-100.0)
== END ==
PROVIDERS: PCP Registered Nurse Diabetes Educator; Referring Provider Registered Nurse Diabetes Educator; Visit Provider Registered Nurse Diabetes Educator
DX: R73.01 Impaired fasting glucose (principal); E78.5 Hyperlipidemia, unspecified; I10 Essential (primary) hypertension; M80.00XA Age-related osteoporosis with current pathological fracture, unspecified site, initial encounter for fracture
CPT/HCPCS: 36415; 80053; 80061; 82306; 83036; 85027